=== PATIENT | female | born 1950 | race Two or more races ===

== ENCOUNTER 2023-01-12 02:53 | Emergency (ER) | payer OTHER ==
[~2023-01-12] VITALS: Ht 152.4 cm; Wt 56.7 kg
[2023-01-12] MEDS ORDERED: AZOR 10-20 MG1 EACH PO (03:24)
[2023-01-12 05:25] LABS: HEMATOCRIT 37.1 % (36.0-45.00); HEMOGLOBIN 12.5 g/dL (12.0-15.00); MEAN CELL VOLUME 95.3 fL (80.00-100.00); MEAN CORPUSCULAR HEMOGLOBIN 32.1 pg (27.00-32.0); MEAN CORPUSCULAR HGB CONC 33.7 g/dl (32.0-36.0); PLATELET COUNT 303 K/uL (150-450); RED CELL DISTRIBUTION WIDTH 13.5 % (11.5-14.5)
[2023-01-12 05:32] LABS: INR 1.14; PARTIAL THROMBOPLASTIN TIME 25.7 SECONDS (22.0-34.0); PROTHROMBIN TIME 11.9 SECONDS (9.0-11.5)
[2023-01-12 06:11] LABS: ALBUMIN 3.6 gm/dL (3.4-5.0); BILIRUBIN TOTAL 0.56 mg/dL (0.3-1.2); BILIRUBIN,CONJUGATED 0.34 mg/dL (0.0-0.2); BILIRUBIN,UNCONJUGATED 0.22 mg/dL (0.0-0.6); CALCIUM 8.9 mg/dL (8.5-10.1); CREATININE SERUM 0.77 mg/dL (0.55-1.02); GFR 74.11; GLOBULINA 3.5 G/DL (2.4-3.5); POTASSIUM 3.81 mEq/L (3.5-5.1); TOTAL PROTEIN 7.1 gm/dL (6.4-8.2)
[2023-01-12] MEDS ORDERED: PEPCID AC20 MG PO (07:30)
[2023-01-12] MEDS ORDERED: LEVSIN/SL0.125 MG SL (07:30)
[2023-01-12] MEDS ORDERED: ONDANSETRON ODT8 MG PO (07:30)
== END 2023-01-12 07:43 | disposition home or self-care (01) ==
LOC: ER 02:53
PROVIDERS: General Practice
DX: K80.50 Calculus of bile duct without cholangitis or cholecystitis without obstruction (principal); R10.11 Right upper quadrant pain
CPT/HCPCS: 36415; 76700; 96365; 96366; 99283; J1885; J3490; J7030

== ENCOUNTER 2023-01-25 07:27 | Emergency (ER) | payer OTHER ==
[~2023-01-25] VITALS: Ht 152.4 cm; Wt 54.4 kg
[~2023-01-25 07:27] MED LIST: AZOR 10-20 MG1 EACH PO; LEVSIN/SL0.125 MG SL; ONDANSETRON ODT8 MG PO; PEPCID AC20 MG PO
[2023-01-25 09:31] LABS: HEMATOCRIT 34.8 % (36.0-45.00); HEMOGLOBIN 11.8 g/dL (12.0-15.00); MEAN CORPUSCULAR HEMOGLOBIN 32.2 pg (27.00-32.0); MEAN CORPUSCULAR HGB CONC 33.9 g/dl (32.0-36.0); PLATELET COUNT 270 K/uL (150-450); RED BLOOD COUNT 3.67 M/uL (4.00-6.00); RED CELL DISTRIBUTION WIDTH 13.4 % (11.5-14.5)
[2023-01-25 09:56] LABS: ALBUMIN 3.8 gm/dL (3.4-5.0); BILIRUBIN TOTAL 0.5 mg/dL (0.3-1.2); CALCIUM 9.4 mg/dL (8.5-10.1); CREATININE SERUM 0.68 mg/dL (0.55-1.02); GFR 85.54; GLOBULINA 3.8 G/DL (2.4-3.5); POTASSIUM 3.96 mEq/L (3.5-5.1); TOTAL PROTEIN 7.6 gm/dL (6.4-8.2)
== END 2023-01-25 13:20 | disposition home or self-care (01) ==
LOC: ER 07:27
PROVIDERS: General Practice
DX: N20.9 Urinary calculus, unspecified (principal); N28.1 Cyst of kidney, acquired; N20.0 Calculus of kidney